=== PATIENT | male | born 1975 | race African-American/Black ===

== ENCOUNTER 2017-06-05 13:55 | Emergency (ER) | payer OTHER | END 2017-06-05 15:00 | disposition home or self-care (01) | LOC: ERS 13:55 | DX: T16.2XXA Foreign body in left ear, initial encounter (principal); L73.9 Follicular disorder, unspecified; F31.9 Bipolar disorder, unspecified; F20.9 Schizophrenia, unspecified; F17.210 Nicotine dependence, cigarettes, uncomplicated | CPT/HCPCS: 69200; 99406 ==